=== PATIENT | female | born 1990 | race Two or more races ===

== ENCOUNTER → 2016-08-03 | Outpatient (CLI) | payer MEDICAID ==
--- NOTE | 2016-08-03 11:44 | WOMENS IMAGING REPORT ---
EXAM DESCRIPTION: U/S BREAST UNILATERAL, COMPL COMPLETED DATE/TIME: 08/03/2016 11:03 am REASON FOR STUDY: N63, BREAST LUMP N63 UNSPECIFIED LUMP IN BREAST COMPARISON: None. TECHNIQUE: Real-time and static grayscale imaging performed of the left breast targeted to the area of clinical/mammographic concern. Selected color Doppler images recorded. LIMITATIONS: None. FINDINGS: MASS: In the 12 o'clock position there is a 4.9 x 2.2 x 5.1 cm isoechoic well-circumscribe d mass with slightly irregular posterior margins. Internal flow on color Doppler. OTHER: No other significant finding. IMPRESSION: Solid mass, presumably inflammatory status post recent piercing. BIRAD: 3 Probably benign finding. Initial short-interval follow-up suggested. RECOMMENDATION: RECOMMENDED FOLLOW-UP: 3 month ultrasound follow-up. COMMENT: The [employer] (ACR) has developed recommendations for screening MRI of the breasts in certain patient populations, to be used in conjunction with mammography. Breast MRI s urveillance may be appropriate for women with more than 20% lifetime risk of developing breast cancer as determined by genetic testing, significant family history of the disease, or history of mantle r adiation for Hodgkins Disease. ACR Practice Guidelines 2008. TECHNICAL DOCUMENTATION: JOB ID: [id number] [employer]- All Rights Reserved
== END ==
LOC: WI 10:25
PROVIDERS: ATTEND Physician Assistant
DX: N63 Unspecified lump in breast (principal)
CPT/HCPCS: 76641

== ENCOUNTER 2016-08-29 10:10 | Emergency (ER) | payer MEDICAID ==
[2016-08-29] MEDS ORDERED: HYDROCODONE/ACETAMINOPHEN 5-325 MG TABLET PO ONE (10:48)
--- NOTE | 2016-08-29 10:52 | ER Document Report ---
ED Skin Rash/Insect Bite/Abscs - General Chief Complaint: Abscess Stated Complaint: BREAST PAIN Time Seen by Provider: 08/29/16 10:32 Mode of Arrival: Ambulatory Information source: Patient Notes: There is a 26-year-old female who presents to the ER today for swelling to her left breast, patient has had this for a couple of weeks now and has been on antibiotics for it from her primary care provider, received an ultrasound on August 03 that revealed that it was a benign mass. She denies any drainage, heat to the area, fever, chills, history of MRSA. She does state that it started after she had a nipple piercing. She has removed that piercing but the swelling and pain have continued. TRAVEL OUTSIDE OF THE [place] IN LAST 30 DAYS: No - Related Data Allergies/Adverse Reactions: No Known Allergies Allergy (Verified 04/13/13 12:40) Past Medical History - General Information source: Patient - Social History Smoking Status: Unknown if Ever Smoked Family History: Reviewed & Not Pertinent Patient has suicidal ideation: No Patient has homicidal ideation: No Renal/ Medical History: Denies: Hx Peritoneal Dialysis Psychiatric Medical History: Reports: Hx Bipolar Disorder Past Surgical History: Reports: Hx Section - X3 - Immunizations Immunizations up to date: Yes Hx Diphtheria, Pertussis, Tetanus Vaccination: Yes Review of Systems - Review of Systems Constitutional: No symptoms reported EENT: No symptoms reported Cardiovascular: No symptoms reported Respiratory: No symptoms reported Gastrointestinal: No symptoms reported Genitourinary: No symptoms reported Female Genitourinary: No symptoms reported Musculoskeletal: No symptoms reported Skin: See HPI Hematologic/Lymphatic: No symptoms reported Neurological/Psychological: No symptoms reported Physical Exam - Vital signs Vitals: Temp Pulse Resp BP Pulse Ox 98.2 F 81 18 119/99 H 99 08/29/16 10:11 08/29/16 10:11 08/29/16 10:11 08/29/16 10:11 08/29/16 10:11 - Notes Notes: PHYSICAL EXAMINATION: GENERAL: Well-appearing and in no acute distress. HEAD: Atraumatic, normocephalic. EYES: Pupils equal round and reactive to light, extraocular movements intact, sclera anicteric, conjunctiva are normal. NECK: Normal range of motion, supple without lymphadenopathy LUNGS: CTAB and equal. No wheezes rales or rhonchi. HEART: Regular rate and rhythm without murmurs EXTREMITIES: Normal range of motion, no pitting edema. No cyanosis. NEUROLOGICAL: Cranial nerves grossly intact. Normal sensory/motor exams. PSYCH: Normal mood, normal affect. SKIN: Warm, Dry, normal turgor, induration and fluctuance noted to left breast under areola superior to nipple, tender to palpation, not warm to tuch, no erythema or drainage Course - Re-evaluation Re-evalutation: 08/29/16 11:03 pt received ultrasound 08-03-16 that I read the report for stating it was a benign mass, but now is more fluctuant and tender, will start pt on doxycycline and have her follow up with pcp who saw her for this and ordered ultrasound to refer her for drainage as it is on areola and I will not drain it here due to cosmetic reasons. She has normal vital signs and is afebrile. I did call [facility] and she was on Flagyl, fluconazole and azithromycin recently. - Vital Signs Vital signs: Temp Pulse Resp BP Pulse Ox 98.2 F 81 18 119/99 H 99 08/29/16 10:11 08/29/16 10:11 08/29/16 10:11 08/29/16 10:11 08/29/16 10:11 Discharge - Discharge Clinical Impression: Breast mass in female Condition: Stable Disposition: HOME, SELF-CARE Additional Instructions: Return immediately for any new or worsening symptoms. Follow up with primary care provider, call tomorrow to make followup appointment. Prescriptions: Doxycycline Hyclate 100 mg PO BID #20 capsule
[2016-08-29] MEDS ORDERED: DOXYCYCLINE HYCLATE 100 MG TABLET PO ONE (11:04)
[2016-08-29 11:24] VITALS: BP 122/75
== END 2016-08-29 11:21 | disposition home or self-care (01) ==
LOC: ER 10:10
DX: N63 Unspecified lump in breast (principal)
CPT/HCPCS: 99283

== ENCOUNTER → 2017-01-06 | Outpatient (CLI) | payer MEDICAID | LOC: LAB 08:22 | PROVIDERS: ATTEND Nurse Practitioner Acute Care | DX: Z53.9 Procedure and treatment not carried out, unspecified reason (principal) ==

== ENCOUNTER → 2017-12-29 | Outpatient (CLI) | payer MEDICAID ==
--- NOTE | 2017-12-29 15:20 | WOMENS IMAGING REPORT ---
EXAM DESCRIPTION: U/S BREAST UNILATERAL, COMPL COMPLETED DATE/TIME: 12/29/2017 3:04 pm REASON FOR STUDY: U/S RIGHT BREAST /N63 BREAST MASS RIGHT N63.0 UNSPECIFIED LUMP IN UNSPECIFIED MARTÍ[place]Z AST COMPARISON: None. TECHNIQUE: Real-time and static grayscale imaging performed of the right breast targeted to the area of clinical/mammographic concern. Selected color Doppler images recorded. LIMITATIONS: None. FINDINGS: Subcutaneous edema upper inner and lower outer quadrant. No abscess. More organized flui d subareolar, roughly 0.5 x 2 cm. No peripheral hyperemia. IMPRESSION: Cellulitis lower outer and upper inner quadrants. Small fluid collection deep to the ni pple. No definite abscess. BIRAD: 2 Benign findings. RECOMMENDATION: RECOMMENDED FOLLOW-UP: Follow-up as clinically indicated. COMMENT: The [employer] (ACR) has developed recommendations for screening MRI of the breasts in certain patient populations, to be used in conjunction with mammography. Breast MRI s urveillance may be appropriate for women with more than 20% lifetime risk of developing breast cancer as determined by genetic testing, significant family history of the disease, or history of mantle r adiation for Hodgkins Disease. ACR Practice Guidelines 2008. TECHNICAL DOCUMENTATION: JOB ID: [id number] [employer]- All Rights Reserved Reading location - IP/workstation name: [facility]
== END ==
LOC: WI 10:18
PROVIDERS: ATTEND Nurse Practitioner Family
DX: N61.0 Mastitis without abscess (principal)
CPT/HCPCS: 76641

== ENCOUNTER → 2018-01-15 | Outpatient (CLI) | payer MEDICAID ==
[2018-01-15 17:31] LABS: CHLAM PCR NOT DETECTED (NOT DETECT); GON PCR NOT DETECTED (NOT DETECT)
== END ==
LOC: LAB 15:24
PROVIDERS: ATTEND Nurse Practitioner Acute Care
DX: R30.0 Dysuria (principal)
CPT/HCPCS: 87086; 87088; 87186; 87491; 87591

== ENCOUNTER 2018-04-14 15:59 | Emergency (ER) | payer SELFPAY ==
--- NOTE | 2018-04-14 16:49 | ER Document Report ---
ED Medical Screen (RME) - General Chief Complaint: Flu Symptoms Stated Complaint: ABDOMINAL PAIN Time Seen by Provider: 04/14/18 16:47 Primary Care Provider: NARINDER JACKMAN NP [Primary Care Provider] - Follow up as needed Mode of Arrival: Ambulatory Information source: Patient Notes: 27-year-old female presents to ED for complaint of abdominal pain with abnormal vaginal bleeding for the last 3 weeks. She states that appears stops and starts and stops and starts since she has been nauseated since then. She states she has not had any vomiting or diarrhea. She has had a cough cold congestion runny nose. She states she does not have any past medical history. She states she is concerned with this abnormal bleeding and it is making her feel more more tired. I have greeted and performed a rapid initial assessment of this patient. A comprehensive ED assessment and evaluation of the patient, analysis of test results and completion of medical decision making process will be conducted by an additional ED providers. TRAVEL OUTSIDE OF THE [place] IN LAST 30 DAYS: No - Related Data Allergies/Adverse Reactions: sulfa Allergy (Uncoded 04/14/18 16:04) Past Medical History Renal/ Medical History: Denies: Hx Peritoneal Dialysis Psychiatric Medical History: Reports: Hx Bipolar Disorder Past Surgical History: Reports: Hx Section - X3 - Immunizations Immunizations up to date: Yes Hx Diphtheria, Pertussis, Tetanus Vaccination: Yes Physical Exam - Vital signs Vitals: Temp Pulse Resp BP Pulse Ox 98.9 F 83 15 119/69 98 04/14/18 16:14 04/14/18 16:14 04/14/18 16:14 04/14/18 16:14 04/14/18 16:14 Course - Vital Signs Vital signs: Temp Pulse Resp BP Pulse Ox 98.9 F 83 15 119/69 98 04/14/18 16:14 04/14/18 16:14 04/14/18 16:14 04/14/18 16:14 04/14/18 16:14 Doctor's Discharge - Discharge Referrals: NARINDER JACKMAN NP [Primary Care Provider] - Follow up as needed
[2018-04-14 19:06] LABS: ABSOLUTE BASOPHILS # (AUTO) 0.1 10^3/uL (0.0-0.2); ABSOLUTE EOSINOPHILS # (AUTO) 0.2 10^3/uL (0.0-0.6); ABSOLUTE LYMPHOCYTES (AUTO) 2.6 10^3/uL (0.5-4.7); ABSOLUTE MONOCYTES (AUTO) 0.7 10^3/uL (0.1-1.4); ABSOLUTE NEUT (AUTO) 5.4 10^3/uL (1.7-8.2); BASOPHILS % (AUTO) 0.6 % (0-2); EOSINOPHILS % (AUTO) 1.7 % (0-6); HEMATOCRIT 43.5 % (36.0-47.0); LYMPHOCYTES % (AUTO) 29.5 % (13-45); MEAN CORPUSCULAR HEMOGLOBIN 29.6 pg (27.0-33.4); MEAN CORPUSCULAR HGB CONC 34.5 g/dL (32.0-36.0); MEAN CORPUSCULAR VOLUME 86 fl (80-97); MONOCYTES % (AUTO) 8.2 % (3-13); PLATELET COUNT 449 10^3/uL (150-450); RED BLOOD COUNT 5.07 10^6/uL (3.72-5.28); RED CELL DISTRIBUTION WIDTH 13.1 % (11.5-14.0); TOTAL CELLS COUNTED % (AUTO) 100 %; WHITE BLOOD COUNT 8.9 10^3/uL (4.0-10.5)
[2018-04-14 19:21] LABS: APPEARANCE,URINE SLIGHTLY-CLOUDY; BILIRUBIN,URINE NEGATIVE (NEGATIVE); COLOR,URINE YELLOW; GLUCOSE, URINE NEGATIVE (NEGATIVE); KETONES,URINE NEGATIVE (NEGATIVE); LEUKOCYTE ESTERASE,URINE NEGATIVE (NEGATIVE); NITRITE,URINE NEGATIVE (NEGATIVE); PROTEIN,URINE NEGATIVE (NEGATIVE); URINE SPECIFIC GRAVITY 1.018
[2018-04-14 19:22] LABS: A TYPE INFLUENZA AG NEGATIVE (NEGATIVE); B INFLUENZA AG NEGATIVE (NEGATIVE)
[2018-04-14 19:23] LABS: ALANINE AMINOTRANSFERASE 34 U/L (9-52); ALBUMIN 4.7 g/dL (3.5-5.0); ALKALINE PHOSPHATASE 64 U/L (38-126); ANION GAP 10 (5-19); ASPARTATE AMINO TRANSFERASE 28 U/L (14-36); BILIRUBIN,DIRECT 0.2 mg/dL (0.0-0.4); BILIRUBIN,TOTAL 0.4 mg/dL (0.2-1.3); BLOOD UREA NITROGEN 12 mg/dL (7-20); CALCIUM 9.9 mg/dL (8.4-10.2); CARBON DIOXIDE 30 mmol/L (22-30); CHLORIDE 99 mmol/L (98-107); GLUCOSE 90 mg/dL (75-110); POTASSIUM 4.3 mmol/L (3.6-5.0); SODIUM 138.9 mmol/L (137-145)
[2018-04-14] MEDS ORDERED: LORATADINE 10 MG TABLET PO ONE (20:18)
[2018-04-14] MEDS ORDERED: ACETAMINOPHEN 325 MG TABLET PO ONE (20:18)
[2018-04-14] MEDS ORDERED: GUAIFENESIN 600 MG TABLET.SA PO ONE (20:18)
[2018-04-14] MEDS ORDERED: PSEUDOEPHEDRINE HCL 30 MG TABLET PO ONE (20:18)
--- NOTE | 2018-04-14 20:20 | ER Document Report ---
ED General - General Chief Complaint: Flu Symptoms Stated Complaint: ABDOMINAL PAIN Time Seen by Provider: 04/14/18 16:47 Primary Care Provider: NARINDER JACKMAN NP [Primary Care Provider] - Follow up in 3-5 days Mode of Arrival: Ambulatory Information source: Patient Notes: 27-year-old female presents to ED for complaint of abdominal pain with abnormal vaginal bleeding times 3 weeks. She states she has had nausea off and on during this 3 weeks. She states her periods seems to stop and then starts again. She states she has not had any vomiting or diarrhea. She states she has had cough cold congestion runny nose symptoms. She has not had a sore throat. She denies any past medical history except for bipolar. She states she has had 3 C- sections. Patient is alert oriented respirations regular and unlabored. TRAVEL OUTSIDE OF THE [place] IN LAST 30 DAYS: No - HPI Onset: Other - 3 weeks Onset/Duration: Intermittent - on the none question Quality of pain: Cramping Severity: Moderate Pain Level: 3 Associated symptoms: Nonproductive cough, Rhinnorhea, Sinus pain/drainage, Other - Vaginal bleeding times 3 weeks with abdominal pain off and on generalized Exacerbated by: Denies Relieved by: Denies Similar symptoms previously: Yes Recently seen / treated by doctor: No - Related Data Allergies/Adverse Reactions: sulfa Allergy (Uncoded 04/14/18 16:04) Past Medical History - General Information source: Patient - Your child has eczema. You are being sent home with a steroid cream called triamcinolone. Apply to the affected areas 3 times daily until the rash resolves. Be sure to keep your child a bath only once every 2 days when possible. After you get your child out of the bath, pat dry and apply a thick lotion such as Eucerin cream. Follow-up with your full time staff interpreter the next several days. Return if your child becomes lethargic, develops a fever greater than 101F, or have any other symptoms that are worrisome to you. - Social History Smoking Status: Never Smoker Frequency of alcohol use: Rare Drug Abuse: None Lives with: Family Family History: Reviewed & Not Pertinent Patient has suicidal ideation: No Patient has homicidal ideation: No - Past Medical History Cardiac Medical History: Reports: None Pulmonary Medical History: Reports: None EENT Medical History: Reports: None Neurological Medical History: Reports: None Endocrine Medical History: Reports: None Renal/ Medical History: Reports: None Malignancy Medical History: Reports: None GI Medical History: Reports: None Musculoskeletal Medical History: Reports None Skin Medical History: Reports None Psychiatric Medical History: Reports: Hx Bipolar Disorder Traumatic Medical History: Reports: None Infectious Medical History: Reports: None Past Surgical History: Reports: Hx Section - X3 - Immunizations Immunizations up to date: Yes Hx Diphtheria, Pertussis, Tetanus Vaccination: Yes Review of Systems - Review of Systems Constitutional: No symptoms reported EENT: Sinus pressure, Sinus discharge, Throat pain Cardiovascular: No symptoms reported Respiratory: Cough Gastrointestinal: No symptoms reported Genitourinary: No symptoms reported Female Genitourinary: No symptoms reported Musculoskeletal: No symptoms reported Skin: No symptoms reported Hematologic/Lymphatic: No symptoms reported Neurological/Psychological: No symptoms reported -: Yes All other systems reviewed and negative Physical Exam - Vital signs Vitals: Temp Pulse Resp BP Pulse Ox 98.9 F 83 15 119/69 98 04/14/18 16:14 04/14/18 16:14 04/14/18 16:14 04/14/18 16:14 04/14/18 16:14 Interpretation: Normal - General General appearance: Appears well, Alert - HEENT Head: Normocephalic, Atraumatic Eyes: Normal Pupils: PERRL Ears: Normal External canal: Normal Tympanic membrane: Normal Sinus: Normal Nasal: Purulent discharge, Swelling Mouth/Lips: Normal Mucous membranes: Normal Pharynx: Post nasal drainage. No: Exudate, Tonsillar hypertrophy Neck: Normal - Respiratory Respiratory status: No respiratory distress Chest status: Nontender Breath sounds: Normal Chest palpation: Normal - Cardiovascular Rhythm: Regular Heart sounds: Normal auscultation Murmur: No - Abdominal Inspection: Normal Distension: No distension Bowel sounds: Normal Tenderness: Tender - Generalized mild Organomegaly: No organomegaly. No: Hepatomegaly, Splenomegaly, Mass - Back Back: Normal, Nontender - Extremities General upper extremity: Normal inspection, Nontender, Normal color, Normal ROM, Normal temperature General lower extremity: Normal inspection, Nontender, Normal color, Normal ROM, Normal temperature, Normal weight bearing. No: Rocael's sign - Neurological Neuro grossly intact: Yes Cognition: Normal Orientation: AAOx4 Emmanuel Coma Scale Eye Opening: Spontaneous Emmanuel Coma Scale Verbal: Oriented Emmanuel Coma Scale Motor: Obeys Commands [place] Coma Scale Total: 15 Speech: Normal Motor strength normal: LUE, RUE, LLE, RLE Sensory: Normal - Psychological Associated symptoms: Normal affect, Normal mood - Skin Skin Temperature: Warm Skin Moisture: Dry Skin Color: Normal Course - Re-evaluation Re-evalutation: 04/14/18 20:27 Discussed labs with patient and written report of labs given to patient to follow-up with her primary doctor. Patient was treated with Claritin 10 mg, Sudafed 30 mg, Mucinex 600 mg, and Tylenol 650 mg for her cough cold congestion and generalized abdominal discomfort. Patient was given instructions for upper respiratory infections. - Vital Signs Vital signs: Temp Pulse Resp BP Pulse Ox 98.9 F 83 15 119/69 98 04/14/18 16:14 04/14/18 16:14 04/14/18 16:14 04/14/18 16:14 04/14/18 16:14 - Laboratory Result Diagrams: 04/14/18 18:25 04/14/18 18:25 Laboratory results interpreted by me: 04/14/18 18:25 Urine Urobilinogen 4.0 H Discharge - Discharge Clinical Impression: Viral respiratory illness, Vaginal bleeding Abdominal pain Qualifiers: Abdominal location: generalized Qualified Code(s): R10.84 - Generalized abdominal pain Condition: Stable Disposition: HOME, SELF-CARE Additional Instructions: ABDOMINAL PAIN: There are many causes of abdominal pain. Pain can mean a serious problem requiring surgery (such as appendicitis). It can also be an innocent problem that goes away on its own (such as a viral infection). Often, time must pass to determine the cause of pain. The physician does not feel that hospitalization is necessary, at present. Things may change within the next 24 hours. Call the doctor or come back for re- examination if any problems occur, such as: (1) Pain that becomes more severe, steady, or becomes concentrated in one specific area. Also, pain that is more severe with movement or coughing. (2) Vomiting that persists or becomes more frequent. (3) Blood in the vomitus, urine, or bowel movements. Blood in the stool may have a tarry or black appearance. (4) Shaking chills or fever greater than 100 degrees F. (5) The abdomen becomes more distended or swollen. (6) Bowel movements cease. (7) Failure to improve as expected. NORMAL EXAM AND WORKUP: At this time, your examination and workup show no significant abnormality. No significant abnormal physical findings are noted. All laboratory, EKG, and imaging (x-ray, CT scans, ultrasound) studies that were ordered show no significant abnormality. Although your examination and all studies that were ordered showed no significant abnormal finding, there are no examinations and no studies that are 100% accurate. There is always the possibility that some abnormality could exist and not be detected with physical examination or within the limits and capabilities of laboratory and other studies. You should return or follow up as you were instructed on your visit today for further evaluation if your symptoms do not resolve. VAGINAL BLEEDING: You are having an episode of abnormal bleeding. Causes of abnormal vaginal bleeding can include miscarriage or tubal , tumors such as cancer or benign fibroids, medication effects, or hormone imbalance. Testing can eliminate unsuspected , tumors, or infection as a cause. "Dysfunctional uterine bleeding" is due to hormone imbalance, and is especially common at times when the normal cycle is disturbed -- whether by recent , use of control pills or hormones, or impending menopause. If the bleeding is innocent, most commonly a short course of hormones is given to restore the uterus to normal. Sometimes, the normal menstrual cycle corrects itself naturally. Sometimes, brief hormone therapy, or even a D&C is required. Your physician will advise you. Treatment for anemia may be required if bleeding is severe. You should rest and avoid intercourse until the bleeding is controlled. Call the doctor or return for re-examination if you feel faint, have increasing pain, or have a major increase in the amount of bleeding. UPPER RESPIRATORY ILLNESS: You have a viral infection of the respiratory passages -- a "cold." This common infection causes nasal congestion, drainage, and often sore throat and cough. It is highly contagious. The disease usually lasts about 10 to 14 days. There is no "cure" for the viral infection -- it must run its course. If there is a complication, such as bacterial infection in the nose, sinuses, middle ear, or bronchial tubes, antibiotics may be required. The antibiotics won't affect the virus. Drink plenty of fluids. A humidifier may help. An expectorant medication or decongestant may make you more comfortable. Use acetaminophen or ibuprofen f or fever or aches. See the doctor if fever persists over two days, if there is any significant worsening of your symptoms, or if you simply fail to improve as expected. DECONGESTANT MEDICATION: A decongestant medicine has been suggested. Often this medicine is combined in the same tablet with an antihistamine or expectorant. This type of medicine is helpful in treating a bad cold or sinus condition, as well as in treatment of the nasal congestion of hay fever. It is not of much benefit for lung infections. Decongestant medicines are related to stimulants. They can cause an increase in blood pressure and heart rate. Persons with heart disease and high blood pressure should not take decongestants without discussing this with the physician. If you develop palpitations, chest pain, headache, or tremors, stop the medicine and consult your physician. COUGH-SUPPRESSANT & EXPECTORANT MEDICATION: You are to use a cough medication as needed for relief of symptoms. This medicine is a combination of an expectorant (to make the mucous thinner and more easily "coughed up") and a cough suppressant (to reduce the frequency of coughing). The cough-suppressant medicine is related to narcotics. You may experience mild nausea and sleepiness. Some patients who are very sensitive to narcotics may have stomach pain from this medicine. Taking the medicine with food reduces these side effects. Do not drive or work with machinery until you know how this medicine affects you. The expectorant should have no side effects. Iodine-containing expectorants (such as organidin) should not be taken by persons with active thyroid disease unless approved by your doctor. Call the doctor if you develop shortness of breath, hives, rash, itching, lightheadedness, or severe nausea and vomiting. You have been treated with Claritin 10 mg Sudafed 30 mg Mucinex 600 mg and Tylenol in the emergency room. These are all [id number] medications that you can get from your pharmacy. USE OF ACETAMINOPHEN (Tylenol): Acetaminophen may be taken for pain relief or fever control. It's much safer than aspirin, offering a wider range of "safe" dosages. It is safe during . Some brand names are Tylenol, Panadol, Datril, Anacin 3, Tempra, and Liquiprin. Acetaminophen can be repeated every four hours. The following are maximum recommended dosages: >89 pounds or adults 650 mg to 900 mg Acetaminophen can be repeated every four hours. Maximum dose not to exceed 4000 mg a day. FOLLOW-UP CARE: If you have been referred to a physician for follow-up care, call the physicians office for an appointment as you were instructed or within the next two days. If you experience worsening or a significant change in your symptoms, notify the physician immediately or return to the Emergency Department at any time for re-evaluation. [facility] [address] [place] [address] [phone] Referrals: NARINDER JACKMAN NP [Primary Care Provider] - Follow up in 3-5 days
[2018-04-14 21:13] VITALS: BP 140/94
== END 2018-04-14 21:11 | disposition home or self-care (01) ==
LOC: ER 15:59
DX: J06.9 Acute upper respiratory infection, unspecified (principal); B97.89 Other viral agents as the cause of diseases classified elsewhere; N93.9 Abnormal uterine and vaginal bleeding, unspecified; R10.84 Generalized abdominal pain; R10.9 Unspecified abdominal pain; R11.0 Nausea; R05 Cough; R09.81 Nasal congestion; R09.89 Other specified symptoms and signs involving the circulatory and respiratory systems
CPT/HCPCS: 36415; 80053; 81001; 84702; 85025; 86900; 86901; 87804; 99283

== ENCOUNTER 2018-05-07 14:06 | Emergency (ER) | payer MEDICAID ==
--- NOTE | 2018-05-07 17:03 | ER Document Report ---
ED Medical Screen (RME) - General Chief Complaint: Breast Problem Stated Complaint: LEFT BREAST PAIN/SWELLING,NAUSEA Time Seen by Provider: 05/07/18 16:50 Primary Care Provider: NARINDER JACKMAN NP [Primary Care Provider] - Follow up as needed Notes: 28-year-old female presents to ED for complaint of swelling and pain to her left breast times a week. There is a very large tender swollen area to the left breast. She states that it is now making her dizzy and nauseated. She states she took 900 mg of ibuprofen this morning and is still had severe pain. Patient is alert oriented respirations regular and unlabored and speaking in full sentences. I have greeted and performed a rapid initial assessment of this patient. A comprehensive ED assessment and evaluation of the patient, analysis of test results and completion of medical decision making process will be conducted by an additional ED providers. TRAVEL OUTSIDE OF THE [place] IN LAST 30 DAYS: No - Related Data Allergies/Adverse Reactions: sulfa Allergy (Uncoded 04/14/18 16:04) Past Medical History Renal/ Medical History: Denies: Hx Peritoneal Dialysis Psychiatric Medical History: Reports: Hx Bipolar Disorder Past Surgical History: Reports: Hx Section - X3 - Immunizations Immunizations up to date: Yes Hx Diphtheria, Pertussis, Tetanus Vaccination: Yes Physical Exam - Vital signs Vitals: Temp Pulse Resp BP Pulse Ox 98.5 F 79 18 111/66 99 05/07/18 14:14 05/07/18 14:14 05/07/18 14:14 05/07/18 14:14 05/07/18 14:14 Course - Vital Signs Vital signs: Temp Pulse Resp BP Pulse Ox 98.5 F 79 18 111/66 99 05/07/18 14:14 05/07/18 14:14 05/07/18 14:14 05/07/18 14:14 05/07/18 14:14 Doctor's Discharge - Discharge Referrals: NARINDER JACKMAN NP [Primary Care Provider] - Follow up as needed
--- NOTE | 2018-05-07 17:56 | RADIOLOGY REPORT (SQ) ---
EXAM DESCRIPTION: U/S BREAST UNILATERAL LIMITED COMPLETED DATE/TIME: 05/07/2018 5:41 pm REASON FOR STUDY: very large painful lump COMPARISON: 12/29/2017 and earlier TECHNIQUE: Static and Realtime grayscale interrogation of focal area(s) of concern in the left breas t(s) acquired. Selected color doppler/spectral images saved to PACS. LIMITATIONS: None. FINDINGS: Masses:There is a hypoechoic circumscribed mass in the left breast at the 2 o'clock positi on, 2 cm from the nipple with some internal vascularity measuring 2.4 x 1.7 x 3.5 cm. No additional solid or cystic mass in the image left breast. Apparent subcutaneous edema of the left breast. Architecture:No alteration of normal morphology. No skin thickening. No edema. Other: None. IMPRESSION: Circumscribed mass at 2 o'clock position in the left breast. Abscess remains in the di fferential. Recommend dedicated diagnostic breast ultrasound after completion of treatment to ensure resolution. BIRAD: 3 Probably benign finding. Initial short-interval follow-up suggested.. RECOMMENDATION: RECOMMENDED FOLLOW-UP: Follow-up after completion of treatment. COMMENT: The [employer] ([employer]) has developed recommendations for screening MRI of the breasts in certain patient populations, to be used in conjunction with mammography. Breast MRI s urveillance may be appropriate for women with more than 20% lifetime risk of developing breast cancer as determined by genetic testing, significant family history of the disease, or history of mantle r adiation for Hodgkins Disease. [employer]CR Practice Guidelines 2008. TECHNICAL DOCUMENTATION: FINDING NUMBER: (1) ASSESSMENT: (1) JOB ID: [id number] [employer]- All Rights Reserved Reading location - IP/workstation name: [email or web address]
[2018-05-07 18:13] LABS: ABSOLUTE BASOPHILS # (AUTO) 0.1 10^3/uL (0.0-0.2); ABSOLUTE EOSINOPHILS # (AUTO) 0.1 10^3/uL (0.0-0.6); ABSOLUTE LYMPHOCYTES (AUTO) 2.2 10^3/uL (0.5-4.7); ABSOLUTE MONOCYTES (AUTO) 0.8 10^3/uL (0.1-1.4); BASOPHILS % (AUTO) 0.9 % (0-2); EOSINOPHILS % (AUTO) 1.4 % (0-6); HEMOGLOBIN 15.7 g/dL (12.0-15.5); LYMPHOCYTES % (AUTO) 23.7 % (13-45); MEAN CORPUSCULAR HEMOGLOBIN 29.6 pg (27.0-33.4); MEAN CORPUSCULAR HGB CONC 34.2 g/dL (32.0-36.0); MEAN CORPUSCULAR VOLUME 87 fl (80-97); MONOCYTES % (AUTO) 8.7 % (3-13); PLATELET COUNT 428 10^3/uL (150-450); RED CELL DISTRIBUTION WIDTH 12.9 % (11.5-14.0); SEGMENTED NEUTROPHILS % (AUTO) 65.3 % (42-78); TOTAL CELLS COUNTED % (AUTO) 100 %; WHITE BLOOD COUNT 9.2 10^3/uL (4.0-10.5)
[2018-05-07 18:16] LABS: APPEARANCE,URINE SLIGHTLY-CLOUDY; BILIRUBIN,URINE NEGATIVE (NEGATIVE); COLOR,URINE YELLOW; GLUCOSE, URINE NEGATIVE (NEGATIVE); KETONES,URINE NEGATIVE (NEGATIVE); LEUKOCYTE ESTERASE,URINE NEGATIVE (NEGATIVE); NITRITE,URINE NEGATIVE (NEGATIVE); PROTEIN,URINE NEGATIVE (NEGATIVE); URINE SPECIFIC GRAVITY 1.026
[2018-05-07 18:35] LABS: ALANINE AMINOTRANSFERASE 34 U/L (9-52); ALBUMIN 4.7 g/dL (3.5-5.0); ALKALINE PHOSPHATASE 62 U/L (38-126); ANION GAP 10 (5-19); ASPARTATE AMINO TRANSFERASE 32 U/L (14-36); BILIRUBIN,DIRECT 0.2 mg/dL (0.0-0.4); BILIRUBIN,TOTAL 0.6 mg/dL (0.2-1.3); BLOOD UREA NITROGEN 11 mg/dL (7-20); CALCIUM 9.6 mg/dL (8.4-10.2); CARBON DIOXIDE 30 mmol/L (22-30); CHLORIDE 101 mmol/L (98-107); GLUCOSE 85 mg/dL (75-110); POTASSIUM 4.3 mmol/L (3.6-5.0); TOTAL PROTEIN 8.3 g/dL (6.3-8.2)
--- NOTE | 2018-05-07 18:57 | ER Document Report ---
ED Breast Problem - General Chief Complaint: Breast Problem Stated Complaint: LEFT BREAST PAIN/SWELLING,NAUSEA Time Seen by Provider: 05/07/18 16:50 Primary Care Provider: KOSTA SWANN MD [ACTIVE STAFF] - Follow up tomorrow Notes: 28-year-old female to the emergency department chief complaint of left breast pain. Has had an abscess on the right last in the past. Over the last several days she has been feeling ill. Pain is located on the left lateral breast. TRAVEL OUTSIDE OF THE [place] IN LAST 30 DAYS: No - HPI Patient complains to provider of: Lump, Redness, Swelling, Tenderness Onset: Last week Onset/Duration: Gradual Quality of pain: Sharp, Throbbing Severity: Moderate Pain Level: 3 Context: No: , Injury, Piercing Discharge description: None Associated Symptoms: Chills - Related Data Allergies/Adverse Reactions: sulfa Allergy (Uncoded 04/14/18 16:04) Past Medical History - General Information source: Patient - Social History Smoking Status: Never Smoker Frequency of alcohol use: None Drug Abuse: None Lives with: Family Family History: Reviewed & Not Pertinent Renal/ Medical History: Denies: Hx Peritoneal Dialysis Psychiatric Medical History: Reports: Hx Bipolar Disorder Past Surgical History: Reports: Hx Section - X3 - Immunizations Immunizations up to date: Yes Hx Diphtheria, Pertussis, Tetanus Vaccination: Yes Review of Systems - Review of Systems Notes: Constitutional: denies: Chills, Diaphoresis, Fever, Malaise, Weakness EENT: denies: Eye discharge, Blurred vision, Tearing, Double vision, Nose congestion, Nose discharge, Throat swelling, Mouth pain Cardiovascular: denies: Palpitations, Heart racing, Orthopnea, Dyspnea, Chest pain Respiratory: denies: Cough, Hurts to breathe, Wheezing, Shortness of breath Gastrointestinal: denies: Abdominal pain, Diarrhea, Nausea, Vomiting, Black stools, bright red blood in stool Genitourinary: denies: Burning, Dysuria, Discharge, Frequency, Flank pain, Hematuria Musculoskeletal: denies: Joint pain, Joint swelling, Muscle pain, Muscle stiffness, back pain Hematologic/Lymphatic: denies: Anemia, Easy bleeding, Easy bruising, Blood clots Neurological/Psychological: denies: Confusion, Dementia, Depression, Loss of consciousness Skin: No lesions, no masses, no skin breakdown, no abscesses. Pain in the left breast. Physical Exam - Vital signs Vitals: Temp Pulse Resp BP Pulse Ox 98.5 F 79 18 111/66 99 05/07/18 14:14 05/07/18 14:14 05/07/18 14:14 05/07/18 14:14 05/07/18 14:14 Interpretation: Normal - General General appearance: Appears well, Alert - HEENT Head: Normocephalic, Atraumatic Eyes: Normal Pupils: PERRL - Respiratory Respiratory status: No respiratory distress Chest status: Nontender Breath sounds: Normal Chest palpation: Normal - Cardiovascular Rhythm: Regular Heart sounds: Normal auscultation Murmur: No - Abdominal Inspection: Normal Distension: No distension Bowel sounds: Normal Tenderness: Nontender Organomegaly: No organomegaly - Back Back: Normal, Nontender - Extremities General upper extremity: Normal inspection, Nontender, Normal color, Normal ROM, Normal temperature General lower extremity: Normal inspection, Nontender, Normal color, Normal ROM, Normal temperature, Normal weight bearing. No: Rocael's sign - Neurological Neuro grossly intact: Yes Cognition: Normal Orientation: AAOx4 [place] Coma Scale Eye Opening: Spontaneous Emmanuel Coma Scale Verbal: Oriented Emmanuel Coma Scale Motor: Obeys Commands [place] Coma Scale Total: 15 Speech: Normal Motor strength normal: LUE, RUE, LLE, RLE Sensory: Normal - Psychological Associated symptoms: Normal affect, Normal mood - Skin Skin Temperature: Warm Skin Moisture: Dry Skin Color: Normal, Other - There is a large tender area on the left breast at the 2 o'clock position with some tenderness that extends superiorly or on the breast. There is no nipple discharge. Course - Re-evaluation Re-evalutation: 05/07/18 19:18 There is obvious concern for breast abscess. We do have general surgery on- call. Surgeon has been called. Will start on antibiotics and anti- inflammatories. Dr. Swann to see patient at this time. 05/07/18 22:44 Dr. Swann has seen the patient and did an aspiration. He will follow patient in the clinic this week. We will start her on Augmentin anti-inflammatories. Patient advised to return immediately for worsening symptoms or concerns. Laboratory 05/07/18 05/07/18 05/07/18 17:54 17:54 17:54 WBC 9.2 RBC 5.30 H Hgb 15.7 H Hct 46.0 MCV 87 MCH 29.6 MCHC 34.2 RDW 12.9 Plt Count 428 Seg Neutrophils % 65.3 Lymphocytes % 23.7 Monocytes % 8.7 Eosinophils % 1.4 Basophils % 0.9 Absolute Neutrophils 6.0 Absolute Lymphocytes 2.2 Absolute Monocytes 0.8 Absolute Eosinophils 0.1 Absolute Basophils 0.1 Sodium 141.0 Potassium 4.3 Chloride 101 Carbon Dioxide 30 Anion Gap 10 BUN 11 Creatinine 1.03 Est GFR ( Amer) > 60 Est GFR (Non-Af Amer) > 60 Glucose 85 Calcium 9.6 Total Bilirubin 0.6 Direct Bilirubin 0.2 Neonat Total Bilirubin Not Reportable Neonat Direct Bilirubin Not Reportable Neonat Indirect Bili Not Reportable AST 32 ALT 34 Alkaline Phosphatase 62 Total Protein 8.3 H Albumin 4.7 Urine Color YELLOW Urine Appearance SLIGHTLY-CLOUDY Urine pH 5.0 Ur Specific [place] 1.026 Urine Protein NEGATIVE Urine Glucose (UA) NEGATIVE Urine Ketones NEGATIVE Urine Blood NEGATIVE Urine Nitrite NEGATIVE Urine Bilirubin NEGATIVE Urine Urobilinogen 4.0 H Ur Leukocyte Esterase NEGATIVE Urine WBC (Auto) 0 Urine RBC (Auto) 1 Squamous Epi Cells Auto 2 Urine Mucus (Auto) MOD Urine Ascorbic Acid NEGATIVE Breast Ultrasound 05/07/18 17:04 IMPRESSION: Circumscribed mass at 2 o'clock position in the left breast. Abscess remains in the differential. Recommend dedicated diagnostic breast ultrasound after completion of treatment to ensure resolution. - Vital Signs Vital signs: Temp Pulse Resp BP Pulse Ox 98.5 F 79 18 111/66 99 05/07/18 14:14 05/07/18 14:14 05/07/18 14:14 05/07/18 14:14 05/07/18 14:14 - Laboratory Result Diagrams: 05/07/18 17:54 05/07/18 17:54 Laboratory results interpreted by me: 05/07/18 05/07/18 05/07/18 17:54 17:54 17:54 RBC 5.30 H Hgb 15.7 H Total Protein 8.3 H Urine Urobilinogen 4.0 H Discharge - Discharge Clinical Impression: Breast abscess Condition: Good Disposition: HOME, SELF-CARE Instructions: Abscess (OM) Additional Instructions: You more than likely have a breast abscess. You were seen by Dr. Swann. We are starting you on antibiotics. Please follow-up with him as instructed. R eturn for any worsening symptoms or concerns. Prescriptions: Amox Tr/Potassium Clavulanate [Augmentin 875-125 Tablet] 1 tab PO BID 10 Days #20 tablet Ibuprofen [Motrin 800 mg Tablet] 800 mg PO Q8H PRN 10 Days #30 tab PRN Reason: For Pain Scale 3-4 Forms: Parent Work Note, Return to Work Referrals: KOSTA SWANN MD [ACTIVE STAFF] - Follow up tomorrow
[2018-05-07] MEDS ORDERED: AMOXICILLIN TR/POT CLAVULANATE 500-125 MG TAB PO ONE (18:59)
[2018-05-07] MEDS ORDERED: IBUPROFEN 800 MG TABLET PO ONE (19:00)
[2018-05-07] MEDS ORDERED: LIDOCAINE 1%/EPINEPHRINE INJ 20 ML VIAL ONE (19:37)
--- NOTE | 2018-05-07 19:49 | PDOC CONSULTATION ---
Consultation Consult Date: 05/07/18 Consult reason:: left breast abscess History of Present Illness Admission Date/PCP: NARINDER JACKMAN NP Patient complains of: left breast pain and swelling History of Present Illness: LENNY HORNER is a 28 year old female seen at the request of the ED physician. She has a 2 day h/o pain and swelling in the left breast, beneath the areola. She has had breast abscesses before. She denies fevers or chills. She does report pain, erythema, and fluctuance. The pain is worse with palpation and movement. Nothing makes the pain better. The pain does not radiate. The pt also denies CP, SOB, N/V, abd pain, dizziness, orthostasis, malaise, blurry vision. Past Medical History Psychiatric Medical History: Reports: Bipolar Disorder Past Surgical History Past Surgical History: Reports: Section - X3, Other - I&D of right breast abscess Social History Lives with: Family Smoking Status: Never Smoker Frequency of Alcohol Use: None Hx Recreational Drug Use: No Hx Prescription Drug Abuse: No Family History Family History: Reviewed & Not Pertinent Parental Family History Reviewed: Yes Children Family History Reviewed: Yes Sibling(s) Family History Reviewed.: Yes Medication/Allergy Home Medications: Guanfacine HCl [Intuniv] mg PO DAILY 12/07/12 Oxycodone HCl/Acetaminophen [Percocet 5-325 mg Tablet] 1 - 2 tab PO ASDIR PRN #20 tablet 12/07/12 Sulfamethoxazole/Trimethoprim [Septra-DS 800/160 mg Tablet] 1 tab PO BID #20 tablet 12/07/12 Fluconazole [Diflucan 100 Mg Tablet] 100 mg PO DAILY #2 tablet 12/10/12 Fluconazole [Diflucan] 200 mg PO DAILY #2 tablet 04/13/13 Ibuprofen [Motrin 800 Mg Tablet] 800 mg PO Q6H #20 tablet 04/13/13 Metronidazole [Flagyl 500 mg Tablet] 500 mg PO BID #14 tablet 04/13/13 Sulfamethoxazole/Trimethoprim [Bactrim Ds Tablet] 1 each PO BID #14 tablet 07/19/13 Tramadol HCl [Ultram 50 mg Tablet] 50 mg PO ASDIR PRN #20 tablet 07/19/13 Doxycycline Hyclate 100 mg PO BID #20 capsule 08/29/16 Allergies/Adverse Reactions: sulfa Allergy (Uncoded 04/14/18 16:04) Review of Systems Constitutional: ABSENT: anorexia, chills, fatigue, fever(s), headache(s), night sweats Eyes: ABSENT: visual disturbances Ears: ABSENT: hearing changes Nose, Mouth, and Throat: ABSENT: sore throat Cardiovascular: ABSENT: chest pain, dyspnea on exertion, palpitations Respiratory: ABSENT: cough, dyspnea Gastrointestinal: ABSENT: abdominal pain, bloating, constipation, diarrhea, dysphagia, melena, nausea, vomiting Musculoskeletal: ABSENT: back pain Integumentary: PRESENT: erythema, other - painful, fluctuant breast mass on left Neurological: ABSENT: confusion, convulsions, dizziness Psychiatric: ABSENT: anxiety, depression Endocrine: ABSENT: cold intolerance, heat intolerance Hematologic/Lymphatic: ABSENT: easy bleeding, easy bruising Physical Exam Vital Signs: Temp Pulse Resp BP Pulse Ox 98.5 F 79 18 111/66 99 05/07/18 14:14 05/07/18 14:14 05/07/18 14:14 05/07/18 14:14 05/07/18 14:14 Intake & Output 05/06/18 05/07/18 05/08/18 06:59 06:59 06:59 Weight 120.4 kg General appearance: PRESENT: no acute distress, cooperative Head exam: PRESENT: atraumatic, normocephalic Eye exam: PRESENT: EOMI, PERRLA. ABSENT: scleral icterus Mouth exam: PRESENT: moist, neck supple Teeth exam: ABSENT: poor dentation Neck exam: ABSENT: meningismus, tenderness, thyromegaly, tracheal deviation Respiratory exam: PRESENT: clear to auscultation brynn, unlabored. ABSENT: chest wall tenderness, tachypnea, wheezes Cardiovascular exam: PRESENT: RRR Pulses: PRESENT: normal radial pulses Vascular exam: PRESENT: normal capillary refill. ABSENT: pallor GI/Abdominal exam: PRESENT: soft. ABSENT: distended, firm, guarding, tenderness Rectal exam: PRESENT: deferred Extremities exam: ABSENT: clubbing Musculoskeletal exam: ABSENT: deformity Neurological exam: PRESENT: alert, awake, oriented to person, oriented to place, oriented to time, oriented to situation, CN II-XII grossly intact Psychiatric exam: ABSENT: agitated, anxious, depressed Focused psych exam: ABSENT: delusional Skin exam: PRESENT: other - left breast with fluctuant mass at 4 o'clock position, beneath the areola. Results Laboratory Results: 05/07/18 17:54 05/07/18 17:54 05/07/18 05/07/18 05/07/18 17:54 17:54 17:54 WBC 9.2 RBC 5.30 H Hgb 15.7 H Hct 46.0 MCV 87 MCH 29.6 MCHC 34.2 RDW 12.9 Plt Count 428 Seg Neutrophils % 65.3 Lymphocytes % 23.7 Monocytes % 8.7 Eosinophils % 1.4 Basophils % 0.9 Absolute Neutrophils 6.0 Absolute Lymphocytes 2.2 Absolute Monocytes 0.8 Absolute Eosinophils 0.1 Absolute Basophils 0.1 Sodium 141.0 Potassium 4.3 Chloride 101 Carbon Dioxide 30 Anion Gap 10 BUN 11 Creatinine 1.03 Est GFR ( Amer) > 60 Est GFR (Non-Af Amer) > 60 Glucose 85 Calcium 9.6 Total Bilirubin 0.6 AST 32 ALT 34 Alkaline Phosphatase 62 Total Protein 8.3 H Albumin 4.7 Urine Color YELLOW Urine Appearance SLIGHTLY-CLOUDY Urine pH 5.0 Ur Specific [place] 1.026 Urine Protein NEGATIVE Urine Glucose (UA) NEGATIVE Urine Ketones NEGATIVE Urine Blood NEGATIVE Urine Nitrite NEGATIVE Ur Leukocyte Esterase NEGATIVE Urine WBC (Auto) 0 Urine RBC (Auto) 1 Impressions: Breast Ultrasound 05/07/18 17:04 IMPRESSION: Circumscribed mass at 2 o'clock position in the left breast. Abscess remains in the differential. Recommend dedicated diagnostic breast ultrasound after completion of treatment to ensure resolution. Assessment & Plan - Diagnosis (1) Left breast abscess Is this a current diagnosis for this admission?: Yes - Plan Summary Plan Summary: 28 y/o F with a painful left breast abscess. I have discussed options at length. The pt has chosen percutaneous aspiration and close followup. I will perform the procedure and then prescribe antibiotics. Followup in my office on Tuesday. Risks/benefits discussed, informed consent obtained, and all questions answered.
--- NOTE | 2018-05-07 20:25 | Operative Report ---
Nonrecallable Operative Report DATE OF SURGERY: 05/07/18 PREOPERATIVE DIAGNOSIS: Left breast abscess POSTOPERATIVE DIAGNOSIS: Same as above OPERATION: Ultrasound-guided percutaneous aspiration of a left breast abscess SURGEON: KOSTA GARCIA ANESTHESIA: Local TISSUE REMOVED OR ALTERED: Wound culture, breast abscess aspiration sample COMPLICATIONS: None apparent ESTIMATED BLOOD LOSS: Minimal PROCEDURE: Drains/implants: None. Procedure in detail: After informed consent was obtained, the patient was laid in the supine position in the ER. The left breast was prepped and draped in a normal sterile fashion. An ultrasound was used to identify the heterogeneous left breast lesion. Under direct ultrasonic guidance an 18-gauge needle was used to aspirate the contents of the left breast abscess. Seropurulent fluid was returned in the syringe. The aspirate was sent for wound culture. Several aspirations were attempted. Once no more fluid could be obtained the needle was removed, and the procedure was concluded. Pressure was held, and hemostasis was achieved. All sponge, instrument, and needle counts were correct. Condition: Stable.
[2018-05-07] MEDS ORDERED: HYDROCODONE/ACETAMINOPHEN 5-325 MG (6 TAB/ER DISP) PO PRN (21:02)
[2018-05-07 21:18] VITALS: BP 125/85
== END 2018-05-07 21:18 | disposition home or self-care (01) ==
LOC: ER 14:06
DX: N61.1 Abscess of the breast and nipple (principal); N64.4 Mastodynia; Z88.2 Allergy status to sulfonamides
CPT/HCPCS: 99284; 36415; 87070; 87205; 85025; 87075; 87077; 80053; 81001; 87186; 76642; 10160; J3490 ×2

== ENCOUNTER 2018-05-18 12:06 | Day surgery (SDC) | payer MEDICAID ==
[~2018-05-18 12:06] MED LIST: IBUPROFEN 800 MG in NORMAL SALINE 250 ML IV PRN; VANCOMYCIN HCL 1,000 MG in DEXTROSE 5%-WATER 250 ML IV PRN
[2018-05-18] MEDS ORDERED: BUPIVACAINE INJ/PF LIPOSOME/PF 266 MG/20 ML SDV ONE (12:34)
[2018-05-18] MEDS ORDERED: LIDOCAINE 1% INJ-PF (10 MG/ML) 30 ML SDV ONE (12:37)
[2018-05-18] MEDS ORDERED: BUPIVACAINE HCL 0.25 % INJ/PF (2.5 MG/1 ML) 30 ML VIAL ONE (12:57)
[2018-05-18] MEDS ORDERED: DEXAMETHASONE SOD PHOS INJ 10 MG/1 ML VIAL ONE (13:15)
[2018-05-18] MEDS ORDERED: MIDAZOLAM 2 MG/2 ML INJ ONE (13:15)
[2018-05-18] MEDS ORDERED: FENTANYL CITRATE INJ/PF 100 MCG/2 ML AMPUL ONE ×2 (13:15→14:22)
[2018-05-18] MEDS ORDERED: LIDOCAINE 2% INJ-PF (20 MG/ML) 10 ML AMPUL ONE (13:15)
[2018-05-18] MEDS ORDERED: ONDANSETRON HCL INJ/PF 4 MG/2 ML SDV ONE (13:15)
[2018-05-18] MEDS ORDERED: PROPOFOL INJ 200 MG/20 ML VIAL IV ONE (13:16)
[2018-05-18] MEDS ORDERED: DIPHENHYDRAMINE HCL 50 MG/ML VIAL ONE (13:16)
[2018-05-18] MEDS ORDERED: OXYCODONE-ACETAMINOPHEN 5-325 MG TABLET ONE (15:09)
--- NOTE | 2018-05-21 17:43 | Discharge Summary ---
Discharge Summary (SDC) - Discharge Final Diagnosis: left breast abscess Date of Surgery: 05/18/18 Discharge Date: 05/18/18 Condition: Stable Forms: [facility] Discharge Plan Treatment or Instructions: d/c home. diet as tolerated. Activity: nonstrenuous. [place] (Tuesday[place] [facility] [place] Referrals: KOSTA GARCIA MD [ACTIVE STAFF] - 05/29/18 8:00 am Discharge Diet: As Tolerated Respiratory Treatments at Home: Deep Breathing/Coughing, Incentive Spirometer Discharge Activity: Balance Activity w/Rest Home Care Assistance: None Needed Report the Following to Your Physician Immediately: Shortness of Breath, Nausea, Vomiting, Increase in Pain, Fever over 101 Degrees, Unusual Bleeding, Redness, Swelling, Warmth
--- NOTE | 2018-05-21 17:50 | Operative Report ---
Nonrecallable Operative Report DATE OF SURGERY: 05/18/18 PREOPERATIVE DIAGNOSIS: left breast abscess POSTOPERATIVE DIAGNOSIS: same OPERATION: incision and drainage of left breast abscess SURGEON: KOSTA GARCIA ANESTHESIA: LMAC TISSUE REMOVED OR ALTERED: wound culture COMPLICATIONS: none apparent ESTIMATED BLOOD LOSS: minimal PROCEDURE: drains: kerlix packing. [id number]: After informed consent was obtained, the pt was laid in the supine position in the OR. The left breast was prepped and draped in a normal, sterile fashion. An incision was created with a 15 blade scalpel at the areolar border. It was deepened using sharp dissection and electrocautery. A large abscess cavity was entered. Wound cultures were taken. The abscess cavity was irrigated and cleaned. The wound was then packed with damp kerlix. A dressing was fashioned, and the procedure was concluded. All sponge, instrument, and needle counts were correct x2 . Condition: stable.
== END 2018-05-18 16:08 | disposition home or self-care (01) ==
LOC: SC 12:06
PROVIDERS: ATTEND Surgery
DX: N61.1 Abscess of the breast and nipple (principal); N92.6 Irregular menstruation, unspecified; Z88.2 Allergy status to sulfonamides; E66.9 Obesity, unspecified; Z68.42 Body mass index [BMI] 45.0-49.9, adult
CPT/HCPCS: 87070; 87205; 87075; 87077; 19020; J2250; J1200; J3010; J2405; S0020; J7060; J7050; J2704; J3370; J3490; J1100; J1741; 400; C9290

== ENCOUNTER 2018-07-26 06:12 | Day surgery (SDC) | payer MEDICAID ==
[2018-07-26] MEDS ORDERED: KETOROLAC TROMETHAMINE 60 MG/2 ML SDV ONE (06:48)
[2018-07-26] MEDS ORDERED: MIDAZOLAM 2 MG/2 ML INJ ONE (06:48)
[2018-07-26] MEDS ORDERED: FENTANYL CITRATE INJ/PF 100 MCG/2 ML AMPUL ONE ×4 (06:48→11:37)
[2018-07-26] MEDS ORDERED: DEXAMETHASONE SOD PHOSPHATE INJ 4 MG/1 ML VIAL ONE (06:49)
[2018-07-26] MEDS ORDERED: ONDANSETRON HCL INJ/PF 4 MG/2 ML SDV ONE (06:49)
[2018-07-26] MEDS ORDERED: PROPOFOL INJ 200 MG/20 ML VIAL IV ONE (06:49)
[2018-07-26 07:00] LABS: HEMATOCRIT 41.7 % (36.0-47.0); MEAN CORPUSCULAR HEMOGLOBIN 28.8 pg (27.0-33.4); MEAN CORPUSCULAR HGB CONC 33.7 g/dL (32.0-36.0); MEAN CORPUSCULAR VOLUME 86 fl (80-97); PLATELET COUNT 396 10^3/uL (150-450); RED BLOOD COUNT 4.87 10^6/uL (3.72-5.28); RED CELL DISTRIBUTION WIDTH 13.1 % (11.5-14.0); WHITE BLOOD COUNT 7.3 10^3/uL (4.0-10.5)
[2018-07-26 07:20] LABS: APPEARANCE,URINE SLIGHTLY-CLOUDY; BILIRUBIN,URINE NEGATIVE (NEGATIVE); COLOR,URINE YELLOW; GLUCOSE, URINE NEGATIVE (NEGATIVE); KETONES,URINE NEGATIVE (NEGATIVE); LEUKOCYTE ESTERASE,URINE MODERATE (NEGATIVE); NITRITE,URINE NEGATIVE (NEGATIVE); PROTEIN,URINE NEGATIVE (NEGATIVE); URINE SPECIFIC GRAVITY 1.017; UROBILINOGEN,URINE NEGATIVE mg/dL (<2.0)
[2018-07-26] MEDS ORDERED: BUPIVACAINE HCL 0.25 % INJ/PF (2.5 MG/1 ML) 30 ML VIAL ONE (08:03)
[2018-07-26] MEDS ORDERED: MEPERIDINE HCL/PF INJ 25 MG/1 ML DISP.SYRIN IV PRN (08:42)
[2018-07-26] MEDS ORDERED: OXYCODONE-ACETAMINOPHEN 5-325 MG TABLET PO PRN ×4 (08:42→11:30)
[2018-07-26] MEDS ORDERED: MORPHINE SULFATE 10 MG/ML INJ IV PRN (08:42)
[2018-07-26] MEDS ORDERED: FENTANYL CITRATE INJ/PF 100 MCG/2 ML AMPUL IV PRN ×3 (08:42)
[2018-07-26] MEDS ORDERED: PROMETHAZINE HCL INJ 25 MG/1 ML VIAL IV PRN ×3 (08:42→11:30)
[2018-07-26] MEDS ORDERED: DIPHENHYDRAMINE HCL 50 MG/ML VIAL IV PRN (08:42)
[2018-07-26] MEDS ORDERED: ONDANSETRON HCL INJ/PF 4 MG/2 ML SDV IV PRN (08:42)
[2018-07-26] MEDS ORDERED: ALBUTEROL SULFATE HFA (90 MCG/PUFF) 200 PUFF/8.5 GM MDI IH ONE (11:05)
[2018-07-26] MEDS ORDERED: RINGERS SOLUTION,LACTATED 1,000 ML IV PRN (11:30)
[2018-07-26] MEDS ORDERED: ACETAMINOPHEN 325 MG TABLET PO PRN (11:30)
[2018-07-26] MEDS ORDERED: HYDROMORPHONE HCL INJ/PF 2 MG/ML AMPULE IV PRN (11:30)
--- NOTE | 2018-07-26 11:30 | Operative Report ---
Operative Report DATE OF SURGERY: 07/26/18 PREOPERATIVE DIAGNOSIS: Right ovarian mass POSTOPERATIVE DIAGNOSIS: Right ovarian mass OPERATION: Diagnostic laparoscopy with right salpingo-oophorectomy and lysis of adhesions SURGEON: CARLOS ZHAO ANESTHESIA: GA TISSUE REMOVED OR ALTERED: Right tube and ovary COMPLICATIONS: Difficult to insufflate ESTIMATED BLOOD LOSS: 75 mL INTRAOPERATIVE FINDINGS: Omental adhesions attached to the upper abdominal wall; enlarged right ovary--smooth appearance; normal-appearing uterus and left tube and ovary; heavy, stretchy abdominal wall PROCEDURE: The patient was taken to the operating room where general anesthesia was obtained without difficulty. She was then placed in dorsal supine lithotomy position and prepped and draped in the normal sterile fashion. Brave speculum was then placed in the patient's vagina and the anterior lip of the cervix grasped with a single-tooth tenaculum. An acorn uterine manipulator was then advanced into the uterus to provide a means of manipulation of the uterus. The speculum and tenaculum were then removed from the patient's cervix and vagina. Attention was then turned to the patient's abdomen where a 5 mm skin incision was then made in the umbilicus. The Optiview trocar with 0 laparoscope was then advanced without difficulty under direct visualization with the Optiview trocar. This was performed while tenting the abdominal wall. Intraperitoneal placement was confirmed by the direct visualization. Pneumoperitoneum was then obtained. Survey of the patient's abdomen and pelvis revealed omental adhesions at the umbilicus. Two 5 mm lateral ports were placed under direct visualization. The harmonic scalpel was then used to cut down the omental adhesions secondary to the fact that it was blocking the view of the left ovary. The uterus appeared normal but had some adhesions near the bladder reflection. The left tube and ovary appeared normal. The uterus was lifted and the right tube and ovary could be seen. The ovary appeared enlarged and smooth. Pictures were taken. The umbilical port was then converted from a 5 mm to a 10 mm port, in order to accommodate the Endo NAKITA bag. The harmonic scalpel was used to remove the right tube and ovary. Hemostasis was noted. The Endo NAKITA bag was then placed through the umbilical port and the specimen was dropped into the bag. The specimen was brought up to the umbilicus and there was attempt to pull the specimen through the incision. Was very difficult secondary to the size of the ovary. The umbilical incision was then extended. The extension still did not allow the specimen to be removed. I then opened the bag and, being careful not to spill any specimen, the ovary was dissected in order to reduce the size of the specimen. After working diligently for approximately 45 minutes, the specimen was removed from the umbilicus. I then replaced the 10 mm port which allowed to much gas to escape. I was unable to insufflate the abdomen again. While trying to remove the specimen, the 2 lateral ports dislodged. I then decided to repair the umbilical incision and try to insufflate from the two 5 mm ports. Her abdomen was so heavy and her peritoneum so stretchy, that I could not replace either lateral 5 mm port. I then used a varies needle to try to insufflate from the umbilicus region. Her abdomen could not be filled with enough gas to create any tension to replace either 5 mm port. I then attempted to enter from the left subcostal region and was unsuccessful also. The CO2 gas was then turned off and as much gas as possible was allowed to escape from the patient's abdomen. All trocars were then removed. The skin at all trocar sites were closed with 4-0 Vicryl in a subcuticular fashion with overlying Dermabond. No antibiotics were indicated for this procedure. After completion of skin closure of the trocar sites attention was then turned to the vagina where the acorn uterine manipulator was removed and the bivalve speculum was replaced. Monsel's solution was applied to the tenaculum sites for hemostasis and the speculum was removed. Sponge, lap, needle and instrument counts were correct 3. The patient tolerated the procedure well and was taken to the recovery area awake and in s table condition
[2018-07-26] MEDS: CEFAZOLIN 1 GM/D5W RTU 1 GM/50 ML RTUPB IV SCH ×2 (12:56→17:16)
[2018-07-26] MEDS: IBUPROFEN 800 MG TABLET PO SCH ×3 (12:57→23:44)
[2018-07-26] MEDS: SIMETHICONE 80 MG TAB.CHEW PO PRN ×2 (12:58→22:05)
[2018-07-26 16:08] LABS: HEMATOCRIT 44.1 % (36.0-47.0); HEMOGLOBIN 14.6 g/dL (12.0-15.5); MEAN CORPUSCULAR HEMOGLOBIN 28.7 pg (27.0-33.4); MEAN CORPUSCULAR VOLUME 87 fl (80-97); PLATELET COUNT 437 10^3/uL (150-450); RED BLOOD COUNT 5.08 10^6/uL (3.72-5.28); RED CELL DISTRIBUTION WIDTH 13.6 % (11.5-14.0); WHITE BLOOD COUNT 14.4 10^3/uL (4.0-10.5)
--- NOTE | 2018-07-26 18:47 | PDOC PROGRESS REPORT ---
Subjective Progress Note for:: 07/26/18 Subjective:: Patient states that her pain is controlled; has not passed flatus yet. Patient is tolerating her diet. She is ambulating and voiding. Patient denies chest pain, shortness of breath, fever/chills or nausea/vomiting. Reason For Visit: D27.0 BENIGN NEOPLASM OF RIGHT OVARY Physical Exam - Physical Exam Vital Signs: Temp Pulse Resp BP Pulse Ox 98.2 F 86 16 115/71 99 07/26/18 16:25 07/26/18 16:25 07/26/18 16:25 07/26/18 16:25 07/26/18 16:25 Intake & Output 07/25/18 07/26/18 07/27/18 06:59 06:59 06:59 Intake Total 2350 Output Total 895 Balance 1455 Weight 118.84 kg General appearance: PRESENT: no acute distress Respiratory exam: PRESENT: clear to auscultation brynn Cardiovascular exam: PRESENT: RRR GI/Abdominal exam: PRESENT: normal bowel sounds, soft - Appropriate tenderness at port sites Extremities exam: ABSENT: calf tenderness, clubbing, full ROM, joint swelling, pedal edema, tenderness, +1 edema, +2 edema, other Result Laboratory Results: 07/26/18 15:41 07/26/18 07/26/18 07/26/18 06:25 06:50 15:41 WBC 7.3 14.4 H RBC 4.87 5.08 Hgb 14.0 14.6 Hct 41.7 44.1 MCV 86 87 MCH 28.8 28.7 MCHC 33.7 33.0 RDW 13.1 13.6 Plt Count 396 437 Urine Color YELLOW Urine Appearance SLIGHTLY-CLOUDY Urine pH 6.0 Ur Specific [place] 1.017 Urine Protein NEGATIVE Urine Glucose (UA) NEGATIVE Urine Ketones NEGATIVE Urine Blood MODERATE H Urine Nitrite NEGATIVE Ur Leukocyte Esterase MODERATE H Urine WBC (Auto) 16 Urine RBC (Auto) 2 Assessment & Plan - Diagnosis (1) Status post laparoscopy Is this a current diagnosis for this admission?: Yes (2) History of right salpingo-oophorectomy Is this a current diagnosis for this admission?: Yes - Time Time Spent with patient: 15-24 minutes Within: within 24 hours - Plan Summary Plan Summary: Continue current care
[2018-07-26] MEDS ORDERED: VECURONIUM BROMIDE INJ 10 MG VIAL IV ONE (19:06)
[2018-07-26] MEDS ORDERED: PHENYLEPHRINE HCL INJ/PF 10 MG/1 ML SDV ONE (19:06)
[2018-07-26] MEDS ORDERED: GLYCOPYRROLATE 1 MG/5 ML SYRINGE ONE (19:06)
[2018-07-26] MEDS ORDERED: SUCCINYLCHOLINE CHLORIDE INJ 200 MG/10 ML VIAL ONE (19:06)
[2018-07-26] MEDS ORDERED: LIDOCAINE 2% INJ-PF (20 MG/ML) 2 ML AMPUL ONE (19:06)
[2018-07-27 06:15] LABS: HEMATOCRIT 38.3 % (36.0-47.0); HEMOGLOBIN 12.8 g/dL (12.0-15.5); MEAN CORPUSCULAR HEMOGLOBIN 28.9 pg (27.0-33.4); MEAN CORPUSCULAR HGB CONC 33.4 g/dL (32.0-36.0); MEAN CORPUSCULAR VOLUME 86 fl (80-97); PLATELET COUNT 381 10^3/uL (150-450); RED BLOOD COUNT 4.43 10^6/uL (3.72-5.28); RED CELL DISTRIBUTION WIDTH 13.2 % (11.5-14.0); WHITE BLOOD COUNT 13.6 10^3/uL (4.0-10.5)
[2018-07-27] MEDS: IBUPROFEN 800 MG TABLET PO SCH ×2 (06:27→11:43)
[2018-07-27] MEDS: BENZOCAINE/MENTHOL SORE THROAT LOZENGE BUCCAL PRN ×2 (06:27→11:37)
--- NOTE | 2018-07-27 12:03 | PDOC PROGRESS REPORT ---
Subjective Progress Note for:: 07/27/18 Reason For Visit: D27.0 BENIGN NEOPLASM OF RIGHT OVARY Physical Exam - Physical Exam Vital Signs: Temp Pulse Resp BP Pulse Ox 97.8 F 78 18 103/56 L 99 07/27/18 07:28 07/27/18 07:28 07/27/18 07:28 07/27/18 07:28 07/27/18 07:28 Intake & Output 07/26/18 07/27/18 07/28/18 06:59 06:59 06:59 Intake Total 3650 474 Output Total 895 Balance 2755 474 Weight 124.1 kg General appearance: PRESENT: no acute distress Respiratory exam: PRESENT: clear to auscultation brynn Cardiovascular exam: PRESENT: RRR GI/Abdominal exam: PRESENT: normal bowel sounds, soft - appropriate tenderness at port sites Extremities exam: ABSENT: calf tenderness, clubbing, full ROM, joint swelling, pedal edema, tenderness, +1 edema, +2 edema, other Result Laboratory Results: 07/27/18 05:44 07/26/18 07/27/18 15:41 05:44 WBC 14.4 H 13.6 H RBC 5.08 4.43 Hgb 14.6 12.8 Hct 44.1 38.3 MCV 87 86 MCH 28.7 28.9 MCHC 33.0 33.4 RDW 13.6 13.2 Plt Count 437 381 Assessment & Plan - Diagnosis (1) Status post laparoscopy Is this a current diagnosis for this admission?: Yes (2) History of right salpingo-oophorectomy Is this a current diagnosis for this admission?: Yes - Time Time Spent with patient: 15-24 minutes Medications reviewed and adjusted accordingly: Yes Within: within 24 hours - Inpatient Certification I certify that my determination is in accordance with my understanding of Medicare's requirements for reasonable and necessary INPATIENT services [42 CFR 412.3e].: Yes Medical Necessity: Need for Pain Control - Plan Summary Plan Summary: 1. Discharge home 2. Follow up in 2 weeks for a post op exam
[2018-07-27 12:10] VITALS: BP 110/63
== END 2018-07-27 13:04 | disposition home or self-care (01) ==
LOC: OROUT 06:12 → 2N 12:30 → OROUT 07-27 13:04
PROVIDERS: ATTEND Obstetrics & Gynecology
DX: C56.1 Malignant neoplasm of right ovary (principal); K66.0 Peritoneal adhesions (postprocedural) (postinfection); N92.6 Irregular menstruation, unspecified; E66.9 Obesity, unspecified; Z68.42 Body mass index [BMI] 45.0-49.9, adult
CPT/HCPCS: 36415; 85027; 81025; 81001; 88342 ×2; 88341 ×2; 88307 ×2; 88313 ×2; 58661; J3490 ×7; J2250; J0690; J1100; J1885; J3010; J2370; J2550; J0330; J2405; S0020; J2704; 840

== ENCOUNTER 2018-11-07 00:14 | Emergency (ER) | payer MEDICAID ==
[2018-11-07] MEDS ORDERED: FAMOTIDINE 20 MG TABLET PO ONE (06:46)
[2018-11-07] MEDS ORDERED: HYDROXYZINE PAMOATE 50 MG CAPSULE PO ONE (06:46)
--- NOTE | 2018-11-07 08:23 | ER Document Report ---
Entered by SARAH DOMÍNGUEZ SCRIBE 11/07/18 0646 Acting as scribe for:ALINA BYRD MD ED Allergic Reaction - General Chief Complaint: Allergic Reaction Stated Complaint: RASH Time Seen by Provider: 11/07/18 06:34 Primary Care Provider: THONY BERUMEN DO [Primary Care Provider] - Follow up as needed Mode of Arrival: Ambulatory Information source: Patient, [facility] Records Notes: This 28-year-old female patient comes emergency room complaining of breaking out in hives and itching. She ate boiled peanuts on Tuesday night, on Tuesday developed the symptoms. She has never reacted to peanuts in the past. She does suffer from bipolar disorder and is not on any medications. She reports an itching and burning sensation on her feet, hands, arms and trunk. TRAVEL OUTSIDE OF THE [place] IN LAST 30 DAYS: No - Related Data Allergies/Adverse Reactions: Sulfa (Sulfonamide Antibiotics) Allergy (Verified 07/26/18 08:55) sulfa Allergy (Uncoded 04/14/18 16:04) Past Medical History - Social History Smoking Status: Unknown if Ever Smoked Family History: Reviewed & Not Pertinent Patient has suicidal ideation: No Patient has homicidal ideation: No - Past Medical History Cardiac Medical History: Denies: Hx Coronary Artery Disease, Hx Heart Attack, Hx Hypertension Pulmonary Medical History: Reports: Hx Asthma - CHILD Denies: Hx COPD Neurological Medical History: Denies: Hx Cerebrovascular Accident, Hx Seizures Renal/ Medical History: Denies: Hx Peritoneal Dialysis GI Medical History: Denies: Hx Hepatitis, Hx Hiatal Hernia, Hx Ulcer Musculoskeletal Medical History: Denies Hx Arthritis Psychiatric Medical History: Reports: Hx Bipolar Disorder Infectious Medical History: Denies: Hx Hepatitis Past Surgical History: Reports: Hx Section - X3, Other - I&D of right breast abscess. Denies: Hx Mastectomy, Hx Open Heart Surgery, Hx Pacemaker - Immunizations Immunizations up to date: Yes Hx Diphtheria, Pertussis, Tetanus Vaccination: Yes Review of Systems - Review of Systems Constitutional: No symptoms reported EENT: No symptoms reported Cardiovascular: No symptoms reported Respiratory: No symptoms reported Gastrointestinal: No symptoms reported Genitourinary: No symptoms reported Female Genitourinary: No symptoms reported Musculoskeletal: No symptoms reported Skin: See HPI, Lesions - itchy Hematologic/Lymphatic: No symptoms reported Neurological/Psychological: No symptoms reported -: Yes All other systems reviewed and negative Physical Exam - Vital signs Vitals: Temp Pulse Resp BP Pulse Ox 98 F 106 H 20 133/73 H 99 11/07/18 00:21 11/07/18 00:21 11/07/18 00:21 11/07/18 00:21 11/07/18 00:21 - Notes Notes: PHYSICAL EXAMINATION: GENERAL: Well-appearing, well-nourished and anxious. HEAD: Atraumatic, normocephalic. EYES: Pupils equal round and reactive to light, extraocular movements intact, sclera anicteric, conjunctiva are normal. ENT: nares patent, oropharynx clear without exudates. Moist mucous membranes. NECK: Normal range of motion, supple without lymphadenopathy LUNGS: Breath sounds clear to auscultation bilaterally and equal. No wheezes rales or rhonchi. HEART: Regular rate and rhythm without murmurs ABDOMEN: Obese, soft, nontender, normoactive bowel sounds. No guarding, no rebound. No masses appreciated. EXTREMITIES: Normal range of motion, no pitting or edema. No cyanosis. NEUROLOGICAL: Cranial nerves grossly intact. Normal speech, normal gait. Normal sensory, motor, and reflex exams. PSYCH: Normal mood, normal affect. SKIN: Warm, Dry, normal turgor. The patient is -[place], so seeing her erythematous rashes is quite difficult. Looking on her dorsal hands there is a very faint appearance of perhaps pinpoint papular type rash. On the volar aspect of her proximal right fourth finger where the skin is less pigmented, there is a very faint erythematous patch about 2 x 3 mm which she states does itch and burn. Similar patches are seen on the medial proximal aspect of each f oot. Course - Re-evaluation Re-evalutation: 11/07/18 08:26 Patient states she is still itching just as badly, states her lips and forehead are now starting to swell. There may be some swelling noted to the lips, but it is quite subtle if it is there. 11/07/18 10:20 At this time the patient is relaxing comfortably. She is not itching or scratching. - Vital Signs Vital signs: Temp Pulse Resp BP Pulse Ox 98 F 87 18 122/80 99 11/07/18 00:21 11/07/18 05:27 11/07/18 05:27 11/07/18 05:27 11/07/18 05:27 Discharge - Discharge Clinical Impression: Urticaria Condition: Stable Disposition: HOME, SELF-CARE Additional Instructions: Acute Allergic Reaction Your symptoms MAY be due to an allergic reaction. Allergy can cause hives, swelling of the hands, feet, and face, hoarseness, and difficulty swallowing or breathing. It may be due to exposure to medication, animal dander, foods, infection, or insect bites. Medication is a common cause, even when prior use of this same medication caused no problems. Acute treatment may include adrenalin and antihistamines. Usually, the specific allergic agent can't be identified unless repeated episodes occur. Home treatment includes the following: (1) Stop any suspicious medications or foods. This will be discussed with you. (2) Oral antihistamines for the next four to five days. Example, diphenhydramine (Benadryl) every four hours if Pepcid is not controlling your itching. (3) Famotidine (Pepcid) every four hours to control the itching and hives. (4) Avoid aspirin until the hives completely disappear. (5) Avoid hot bahs or showers until the hives are completely gone. Call the doctor if faintness, difficulty swallowing, tightness in the chest, or wheezing occurs. Follow-up with your primary care provider if not improving in the next 1 to 2 days. RETURN TO THE EMERGENCY ROOM IF ANY NEW OR WORSENING SYMPTOMS. Referrals: THONY BERUMEN DO [Primary Care Provider] - Follow up as needed Scribe Attestation: 11/07/18 09:19 I personally performed the services described in the documentation, reviewed and edited the documentation which was dictated to the scribe in my presence, and it accurately records my words and actions. I personally performed the services described in the documentation, reviewed and edited the documentation which was dictated to the scribe in my presence, and it accurately records my words and actions.
[2018-11-07] MEDS ORDERED: DIAZEPAM 5 MG TABLET PO ONE (08:25)
[2018-11-07] MEDS ORDERED: PREDNISONE 20 MG TABLET PO ONE (08:25)
[2018-11-07] MEDS ORDERED: EPINEPHRINE INJ/PF 1 MG/1 ML AMPULE SUBCUT ONE (08:25)
[2018-11-07 10:33] VITALS: BP 115/54
== END 2018-11-07 10:30 | disposition home or self-care (01) ==
LOC: ER 00:14
DX: L50.9 Urticaria, unspecified (principal); R21 Rash and other nonspecific skin eruption; T78.40XA Allergy, unspecified, initial encounter; F31.9 Bipolar disorder, unspecified; J45.909 Unspecified asthma, uncomplicated
CPT/HCPCS: 99282; 96372; J3490 ×3; J0171; J7512

== ENCOUNTER 2019-01-14 14:39 | Emergency (ER) | payer MEDICAID ==
[2019-01-14 14:43] VITALS: BP 133/65
[2019-01-14] MEDS ORDERED: DIPHENHYDRAMINE HCL 25 MG CAPSULE PO ONE (15:07)
[2019-01-14] MEDS ORDERED: DEXAMETHASONE SOD PHOS INJ 10 MG/1 ML VIAL IM ONE (15:07)
[2019-01-14] MEDS ORDERED: FAMOTIDINE 20 MG TABLET PO ONE (15:07)
--- NOTE | 2019-01-14 15:11 | ER Document Report ---
HPI - HPI Time Seen by Provider: 01/14/19 14:49 Context: Patient is a 28-year-old female presents to the emergency department with a chief complaint of possible allergic reaction. Patient reports she had her 4 wisdom teeth removed on Tuesday. She reports that the oral surgeon told her the left a piece of bone and [address] of the sockets and place her on clindamycin for a infection. She reports the day after taking the clindamycin she would develop intermittent hives and has since then. Patient reports she feels like she is itching and that her hands are burning. Patient denies difficulty breathing, difficulty swallowing or lip swelling. Patient does report having some left facial swelling which was present after having her wisdom teeth removed. Patient reports that the swelling has actually improved. Patient reports she did not take any clindamycin today as she thought this is what was causing the reaction. Patient reports she has been taking Benadryl with minimal relief. - REPRODUCTIVE Reproductive: DENIES: : Past Medical History - General Information source: Patient - Social History Smoking Status: Unknown if Ever Smoked Lives with: Family Family History: Reviewed & Not Pertinent - Past Medical History Cardiac Medical History: Reports: None Denies: Hx Coronary Artery Disease, Hx Heart Attack, Hx Hypertension Pulmonary Medical History: Reports: Hx Asthma - CHILD Denies: Hx COPD EENT Medical History: Reports: None Neurological Medical History: Reports: None. Denies: Hx Cerebrovascular Accident, Hx Seizures Endocrine Medical History: Reports: None Renal/ Medical History: Reports: None. Denies: Hx Peritoneal Dialysis Malignancy Medical History: Reports: None GI Medical History: Reports: None. Denies: Hx Hepatitis, Hx Hiatal Hernia, Hx Ulcer Musculoskeletal Medical History: Reports None, Denies Hx Arthritis Skin Medical History: Reports None Psychiatric Medical History: Reports: Hx Bipolar Disorder Traumatic Medical History: Reports: None Infectious Medical History: Reports: None. Denies: Hx Hepatitis Past Surgical History: Reports: Hx Section - X3, Other - I&D of right breast abscess. Denies: Hx Mastectomy, Hx Open Heart Surgery, Hx Pacemaker - Immunizations Immunizations up to date: Yes Hx Diphtheria, Pertussis, Tetanus Vaccination: Yes Vertical Provider Document - CONSTITUTIONAL Agree With Documented VS: Yes Exam Limitations: No Limitations General Appearance: No Apparent Distress - INFECTION CONTROL TRAVEL OUTSIDE OF THE [place] IN LAST 30 DAYS: No - HEENT HEENT: Atraumatic, Normocephalic, PERRLA Notes: Patient does have some left sided facial swelling (reports this is better since having her wisdom teeth removed). Airway is patent, uvula midline without edema. There is no tonsillar hypertrophy, there is no palpable abscess on the gumline or the buccal area noted in the mouth. There is no angioedema present. - NECK Neck: Normal Inspection, Lymphadenopathy-Left - RESPIRATORY Respiratory: Breath Sounds Normal, No Respiratory Distress - CARDIOVASCULAR Cardiovascular: Regular Rate, Regular Rhythm - GI/ABDOMEN Gastrointestinal: Abdomen Soft, Abdomen Non-Tender, Normal Bowel Sounds - MUSCULOSKELETAL/EXTREMETIES Musculoskeletal/Extremeties: FROM - NEURO Level of Consciousness: Awake, Alert, Appropriate - DERM Integumentary: Warm, Dry, No Rash Course - Re-evaluation Re-evalutation: 01/14/19 15:14 Patient reports having burning to her bilateral hands. Patient reports she did have hives to the right breast and arms earlier but this has since improved. Patient in no acute distress and nontoxic-appearing. Patient does have some left-sided facial swelling which she reports has improved since having her wisdom teeth out on Tuesday. I did inform the patient to stop taking the clindamycin and I will prescribe her penicillin. I did inform her that she needs to contact her oral surgeon tomorrow to make him aware of the reaction to the clindamycin and the antibiotic change. Patient verbalized understanding. Patient to continue Pepcid, Benadryl and will give a dose of Decadron here in the emergency department. Patient given strict return precautions. - Vital Signs Vital signs: Temp Pulse Resp BP Pulse Ox 98.4 F 94 18 133/65 H 99 01/14/19 14:40 01/14/19 14:40 01/14/19 14:40 01/14/19 14:40 01/14/19 14:40 Discharge - Discharge Clinical Impression: Urticaria Allergic reaction caused by a drug Qualifiers: Encounter type: initial encounter Qualified Code(s): T78.40XA - Allergy, unspecified, initial encounter Condition: Stable Disposition: HOME, SELF-CARE Additional Instructions: Today you are seen in the emergency department for a possible allergic reaction. It appears that the most likely cause of this is the clindamycin. Please stop taking the clindamycin. I have prescribed you a oral antibiotic called penicillin. Please start taking this medication to treat your dental infection. Please follow-up with your oral surgeon tomorrow to make him aware of the change in antibiotic and that you had a reaction to the clindamycin. You have been given a steroid injection of Decadron. Decadron is used to control inflammation or allergies. *You have also been given a dose of Pepcid. Pepcid's acid suppressing but also has antihistamine properties which will help with your itching and reaction. *It is extremely important to return to the emergency department if you develop any shortness of breath, difficulty breathing, difficulty swallowing, lip swelling, tongue swelling or any new or worsening symptoms. ACUTE ALLERGIC REACTION: Your symptoms are due to an allergic reaction. Allergy can cause hives, swelling of the hands, feet, and face, hoarseness, and difficulty swallowing or breathing. It may be due to exposure to medication, animal dander, foods, infection, or insect bites. Medication is a common cause, even when prior use of this same medication caused no problems. Acute treatment may include adrenalin and antihistamines. Usually, the specific allergic agent can't be identified unless repeated episodes occur. Home treatment includes the following: (1) Stop any suspicious medications. This will be discussed with you. (2) Oral antihistamines for the next four to five days. Example, diphenhydramine (Benadryl) every four hours. (3) You may also use cimetidine (Tagamet), ranitidine (Zantac), or famotidine (Pepcid) every four hours if diphenhydramine is not controlling itching and hives. (4) Avoid aspirin until the hives completely disappear. (5) Avoid hot baths or showers until the hives are completely gone. Call the doctor if faintness, difficulty swallowing, tightness in the chest, or wheezing occurs. STEROID MEDICATION INJECTION: You have been given an injection of medicine of the cortisone/steroid class. This medication is used to control inflammation or allergy. It is often continued as a pill for a short period of time, until the acute process subsides. There are usually no side effects from short-term use of cortisone-like medications. Some persons feel an increased sense of well-being and are not sleepy at bedtime. Long-term use of cortisone medications is best avoided, unless required for a severe condition. If your condition does not remit, or relapses after the course of corticosteroid medication, you should consult your physician. ACID-SUPPRESSING MEDICATION: You have a prescription for medicine which reduces the stomach's secretion of acid. Examples include Zantac, Tagament, and Pepcid. These drugs are often used to allow healing of ulcers or esophagitis. They may be needed to prevent recurrence of ulcers in some patients, or to prevent damage from acid reflux in the esophagus. Take all medication as prescribed, even after the pain is gone. Regular antacids may be added as needed if you have symptoms while taking this medicine. These medications sometimes are prescribed for allergic reactions because they have anti-histaminic effects and relieve the rash and itching of the reaction. There are usually no side effects from this medication. But, in rare cases and particularly in the elderly, serious problems can occur. Contact your doctor if there is fever, rash, hallucinations, confusion, or unusual bruising. Contact your doctor at once if you develop lightheadedness, black or bloody stool, or bloody vomitus. ANTIHISTAMINES: An antihistamine has been given and/or prescribed to control your symptoms. Antihistamines are used for many reasons, including itching, watering eyes, runny nose, allergic swelling, hives, and insect stings. Antihistamines may cause drowsiness, especially with the first dose. Do not operate machinery or drive while under the effects of the medication. Other common side effects include dry mouth and eyes. In older persons, antihistamines can occasionally cause urinary retention, constipation, and trouble focusing the eyes. Do not combine the medication with alcohol, or with any other medication without talking to your doctor. USE OF DIPHENHYDRAMINE: The use of diphenhydramine (Benadryl) has been recommended to control allergic symptoms. The 25 mg strength is available over- the-counter, as well as the elixir. This antihistamine is used for many symptoms. It's useful for itching, watering eyes and nose, allergic swelling, hives, and insect stings. The medication can be repeated four times daily. Age Elixir (12.5 mg/tsp) 25 mg pill 2-3 yr 1/2 tsp 4-8 yr 1 tsp 9-14 yr 2 tsp one tab adult 1-2 tabs Antihistamines may cause drowsiness, especially with the first dose. Do not operate machinery or drive while under the effects of the medication. Do not combine the medication with alcohol, or with any other medication without talking to your doctor. FOLLOW-UP CARE: If you have been referred to a physician for follow-up care, call the physician s office for an appointment as you were instructed or within the next two days. If you experience worsening or a significant change in your symptoms, notify the physician immediately or return to the Emergency Department at any time for re-evaluation. Prescriptions: Penicillin V Potassium [Penicillin Vk 500 mg Tablet] 500 mg PO QID 7 Days #28 tablet Famotidine [Pepcid 20 mg Tablet] 20 mg PO DAILY #12 tablet Referrals: THONY BERUMEN DO [Primary Care Provider] - Follow up as needed
== END 2019-01-14 15:36 | disposition home or self-care (01) ==
LOC: ER 14:39
DX: L50.0 Allergic urticaria (principal)
CPT/HCPCS: 99283; 96374; J3490 ×2; J1100

== ENCOUNTER → 2019-04-02 | Outpatient (CLI) | payer MEDICAID | LOC: OD 14:20 | PROVIDERS: ATTEND Nurse Practitioner Acute Care | DX: N91.2 Amenorrhea, unspecified (principal) | CPT/HCPCS: 36415; 84703 ==